=== PATIENT | female | born 1985 | race Caucasian/White ===

== ENCOUNTER 2018-09-06 18:27 | Emergency (ER) | payer MEDICAID ==
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
[2018-09-06 21:53] VITALS: RESP 18; O2SAT 99
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
[2018-09-07 01:25] VITALS: BP 113/61; PULSE 79; TEMP 97.6
== END 2018-09-06 22:10 | disposition home or self-care (01) ==
LOC: C.ER 18:27 → C.EROB 18:27 → C.ER 22:10
DX: S00.83XA Contusion of other part of head, initial encounter (principal); V89.2XXA Person injured in unspecified motor-vehicle accident, traffic, initial encounter